=== PATIENT | male | born 1960 ===

== ENCOUNTER 2024-06-28 07:49 | Emergency (ER) | payer OTHER ==
[~2024-06-28] VITALS: Ht 188 cm; Wt 108.9 kg
[~2024-06-28 07:49] MED LIST: KETO10TA2 PO
[2024-06-28] MEDS ORDERED: DEXAMETHASONE SODIUM PHOSPHATE 4 MG/ML VIAL IM STA (08:35)
[2024-06-28] MEDS ORDERED: KETOROLAC TROMETHAMINE 30 MG VIAL IM STA (08:36)
[2024-06-28] MEDS ORDERED: KETOROLAC TROMETHAMINE 30 MG VIAL ONE (08:39)
[2024-06-28] MEDS ORDERED: DEXAMETHASONE SODIUM PHOSPHATE 4 MG/ML VIAL ONE (08:39)
== END 2024-06-28 08:50 | disposition home or self-care (01) ==
LOC: ER 07:49
DX: G56.00 Carpal tunnel syndrome, unspecified upper limb (principal)
CPT/HCPCS: 96372; 99282; J1100; J1885